=== PATIENT | female | born 1950 | race Caucasian/White ===

== ENCOUNTER 2019-06-21 17:46 | Emergency (ER) | payer MEDICARE, OTHER ==
--- NOTE | 2019-06-21 18:11 | ED ---
Complex/Multi-Sys Presentation - HPI Summary HPI Summary: This patient is a 69 year old female presenting to [facility] with a chief complaint of arthralgia. She states she feels like she has been "run over by a [employer] truck" . She states she has been having increasing problems after a fall in March where she initially had left arm/shoulder pain. She states she has progressively felt worse and is having a hard time getting up. She states she feels pain in her hips, shoulders, and neck. She states she feels like she has the flu but denies any fever, nausea, or vomiting. She reports cough and headache. Medications reviewed, allergies noted. - History Of Current Complaint Chief Complaint: EDGeneral Time Seen by Provider: 06/21/19 17:54 Hx Obtained From: Patient Onset/Duration: Lasting Weeks - Allergies/Home Medications Allergies/Adverse Reactions: Allergies Allergy/AdvReac Type Severity Reaction Status Date / Time No Known Allergies Allergy Verified 06/21/19 17:52 PMH/Surg Hx/FS Hx/Imm Hx Endocrine/Hematology History: Denies: Hx Diabetes EENT History: Denies: Hx Deafness - Surgical History Surgical History: Yes Surgery Procedure, Year, and Place: Cholecystectomy Infectious Disease History: No Infectious Disease History: Denies: Traveled Outside the [place] in Last 30 Days - Family History Known Family History: Negative: Seizure Disorder - Social History Alcohol Use: None Substance Use Type: Reports: None Smoking Status (MU): Never Smoked Tobacco Review of Systems Negative: Fever Positive: Cough Negative: Vomiting, Nausea Positive: Arthralgia Positive: Headache All Other Systems Reviewed And Are Negative: Yes Physical Exam - Summary Physical Exam Summary: Constitutional: Well-developed, Well-nourished, Alert. (-) Distressed Skin: Warm, Dry HENT: Normocephalic; Atraumatic Eyes: Conjunctiva normal Neck: Musculoskeletal ROM normal neck. (-) JVD, (-) Stridor, (-) Tracheal deviation Cardio: Rhythm regular, rate tachycardic in the low 100s, Heart sounds normal; Intact distal pulses; Radial pulses are 2+ and symmetric. (-) Murmur Pulmonary/Chest wall: Effort normal. (-) Respiratory distress, (-) Wheezes, (-) Rales Abd: Soft, (-) tenderness, (-) Distension, (-) Guarding, (-) Rebound Musculoskeletal: (-) Edema Lymph: (-) Cervical adenopathy Neuro: Alert, Oriented x3 Psych: Mood and affect Normal Triage Information Reviewed: Yes Vital Signs On Initial Exam: Initial Vitals Temp Pulse Resp BP Pulse Ox 99.5 F 117 16 169/115 96 06/21/19 17:48 06/21/19 17:48 06/21/19 17:48 06/21/19 17:48 06/21/19 17:48 Vital Signs Reviewed: Yes Procedures - Sedation Patient Received Moderate/Deep Sedation with Procedure: No Diagnostics - Vital Signs Vital Signs Temp Pulse Resp BP Pulse Ox 06/21/19 17:48 99.5 F 117 16 169/115 96 - Laboratory Result Diagrams: 06/21/19 18:28 06/21/19 18:28 Lab Statement: Any lab studies that have been ordered have been reviewed, and results considered in the medical decision making process. - Radiology CXR Radiology Interpretation Completed By: ED Physician Summary of Radiographic Findings: No acute process. Pending official radiologist report. - EKG 1823 Cardiac Rate: Tachycardia - 108 BPM EKG Rhythm: Sinus Tachycardia Summary of EKG Findings: No STEMI. ED Physician has reviewed and interpreted this EKG. Re-Evaluation - Re-Evaluation First Eval Re-Evaluation Time: 20:04 Complex Multi-Symp Course/Dx Course Of Treatment: Patient is here with roughly 2 months of joint pain. However history, patient's symptoms got acutely worse. Patient was diagnosed with influenza here. Patient had blood performed which was grossly unremarkable outside of a slightly elevated CRP. Patient was started on Tamiflu given her age. - Diagnoses Provider Diagnoses: Influenza Discharge ED - Sign-Out/Discharge Documenting (check all that apply): Patient Departure - Discharge - Discharge Plan Condition: Stable Disposition: HOME Prescriptions: Ondansetron ODT TAB* [Zofran 4 MG Odt TAB*] 4 mg PO Q8H PRN #12 tab.odt PRN Reason: Vomiting Oseltamivir CAP* [Tamiflu CAP*] 75 mg PO BID 5 Days #10 cap Patient Education Materials: Influenza (ED) Referrals: No Primary Care Phys,NOPCP [Primary Care Provider] - Additional Instructions: Return if you have severe shortness of breath, severe chest pain, unable to tolerate any fluids for 12 hours or any other concerning symptoms. Take Motrin 600 mg every 6 hours for pain. You can by OTC decongestant for congestion and/ or drink hot tea with honey. - Billing Disposition and Condition Condition: STABLE Disposition: Home - Attestation Statements Document Initiated by Natalie: Yes Documenting Scribe: Jace Muniz Provider For Whom Natalie is Documenting (Include Credential): Maximo Aguila MD Scribe Attestation: IJace, scribed for Maximo Aguila MD on 06/21/19 at 2047. Scribe Documentation Reviewed: Yes Provider Attestation: The documentation as recorded by the Jace carter accurately reflects the service I personally performed and the decisions made by me, Maximo Aguila MD Status of Scribe Document: Viewed
[2019-06-21] MEDS ORDERED: Ketorolac INJ* 30 MG/ML 1 ML VIAL IM ONE (18:16)
[2019-06-21 18:41] LABS: Hematocrit 36 % (35-47); Hemoglobin 12.3 g/dL (12.0-16.0); Mean Corpuscular HGB Conc 34 g/dL (31-36); Mean Corpuscular Hemoglobin 30 pg (27-31); Mean Corpuscular Volume 89 fL (80-97); Mean Platelet Volume 7.1 fL (7.4-10.4); Platelet Count 227 10^3/uL (150-450); Red Blood Count 4.04 10^6 /uL (3.70-4.87); Red Cell Distribution Width 14 % (10-15)
[2019-06-21 18:55] LABS: Influenza A Molecular POSITIVE (Negative)
[2019-06-21 18:56] LABS: ALT 19 U/L (7-52); AST 18 U/L (13-39); Albumin 4.1 g/dL (3.2-5.2); Albumin/Globulin Ratio 1.4 (1-3); Alkaline Phosphatase 60 U/L (34-104); Anion Gap 9 mmol/L (2-11); Blood Urea Nitrogen 12 mg/dL (6-24); C Reactive Protein 12.63 mg/L (<8.01); CO2 Carbon Dioxide 24 mmol/L (22-32); Calcium 9.2 mg/dL (8.6-10.3); Chloride 103 mmol/L (101-111); EGFR African American 85.8 (>60); EGFR Non-African American 70.9 (>60); Globulin 2.9 g/dL (2-4); Glucose 105 mg/dL (70-100); Sodium 136 mmol/L (135-145)
[2019-06-21 18:59] LABS: Rheumatoid Factor < 10 IU/mL (<15)
[2019-06-21 19:36] LABS: ABS Basophils 0.1 10^3/ul (0-0.2); ABS Lymphocytes 1.4 10^3/ul (1.0-4.8); ABS Monocytes 4.5 10^3/ul (0-0.8); Eosinophil % 0.6 %; Lymphocyte % 16.9 %
[2019-06-21 20:26] VITALS: BP 133/97
== END 2019-06-21 20:30 | disposition home or self-care (01) ==
LOC: ED 17:46
DX: J10.1 Influenza due to other identified influenza virus with other respiratory manifestations (principal); R00.0 Tachycardia, unspecified
CPT/HCPCS: 36415; 71046; 80053; 85025; 85060; 86140; 86431; 93005; 96372; 99283; J1885